=== PATIENT | female | born 1955 | race Caucasian/White ===

== ENCOUNTER → 2016-08-28 | Outpatient (CLI) | payer BC ==
[~2016-08-28] MED LIST: IOPAMIDOL (ISOVUE-300) 100 ML BTL IV ONE
--- NOTE | 2016-08-28 19:06 | CT ---
CT Abdomen (With Contrast) Indication: Z85.07 Personal history of malignant neoplasm of pancreas- HISTORY OF PANCREATIC CA-STATU S POST WHIPPLE AND STENT PLACEMENT. Follow up. Technique: 2.5 mm thick collimated slices were obtained through the abdomen following uneventful intr avenous administration of 90 mL Isovue 300. The abdomen was scanned during arterial and portal venous phase. No oral contrast was administered. Dose reduction techniques were utilized. Comparison: CT of the abdomen dated October 05, 2015, July 22, 2015, and February 24, 2012. Findings: The gastropancreatic duct stent remains well seated. Peripancreatic edema and stranding has completely resolved from the prior studies. The duct in the pancreatic remnant remains mildly dilate d measuring 5 to 6 mm in diameter. Several coarse calcifications along the inferior aspect of the garcia creatic tail are new. No peripancreatic fluid collection has developed. The biliary jejunostomy remains widely patent. Pneumobilia in the left lobe of the liver is unchanged . No intrapelvic biliary dilation has developed. The liver, spleen, adrenal glands, and kidneys remain normal. The portal and hepatic veins are patent . No enlarged lymph node, mass, ascites or peritoneal implant have developed. Bowel pattern is within normal limit. Mild right-sided constipation is similar to September 2015. The lung bases are clear. The abdominal aorta has normal caliber with trace calcified plaque. No bone lesions. Impression: 1. The gastric pancreatic duct stent remains well positioned. No residual peripancreatic inflammation or fluid collection. 2. Mild residual dilatation of the pancreatic duct and new dystrophic calcifications along the inferi or aspect of the pancreatic remnant. 3. Stigmata of Whipple procedure unchanged. No evidence of biliary obstruction. 4. No evidence of local regional recurrence or metastatic disease to the abdomen.
== END ==
LOC: FIMAGING 15:47
PROVIDERS: ATTEND Internal Medicine Gastroenterology
DX: Z08 Encounter for follow-up examination after completed treatment for malignant neoplasm (principal); Z85.07 Personal history of malignant neoplasm of pancreas; Z96.89 Presence of other specified functional implants
CPT/HCPCS: Q9967

== ENCOUNTER → 2017-04-02 | Outpatient (CLI) | payer BC | LOC: FIMAGING 08:42 | PROVIDERS: ATTEND Internal Medicine Hematology & Oncology | DX: Z12.31 Encounter for screening mammogram for malignant neoplasm of breast (principal); Z85.3 Personal history of malignant neoplasm of breast | CPT/HCPCS: G0202-52 ==

== ENCOUNTER → 2018-05-24 | Outpatient (CLI) | payer OTHER | LOC: BMCIMAGING 08:49 | PROVIDERS: ATTEND Family Medicine | DX: M25.531 Pain in right wrist (principal); M79.641 Pain in right hand; W19.XXXA Unspecified fall, initial encounter; M11.9 Crystal arthropathy, unspecified; R93.6 Abnormal findings on diagnostic imaging of limbs ==

== ENCOUNTER → 2018-06-02 | Outpatient (CLI) | payer OTHER | LOC: FIMAGING 08:23 | PROVIDERS: ATTEND Internal Medicine Hematology & Oncology | DX: Z12.31 Encounter for screening mammogram for malignant neoplasm of breast (principal); Z85.3 Personal history of malignant neoplasm of breast ==

== ENCOUNTER → 2018-06-16 | Outpatient (CLI) | payer OTHER | LOC: BMCIMAGING 16:10 | PROVIDERS: ATTEND Orthopaedic Surgery Hand Surgery | DX: S62.101A Fracture of unspecified carpal bone, right wrist, initial encounter for closed fracture (principal) ==

== ENCOUNTER → 2018-11-11 | Outpatient (CLI) | payer OTHER | LOC: FIMAGING 08:52 | PROVIDERS: ATTEND Internal Medicine Hematology & Oncology | DX: Z13.820 Encounter for screening for osteoporosis (principal); M81.0 Age-related osteoporosis without current pathological fracture; Z78.0 Asymptomatic menopausal state; Z85.3 Personal history of malignant neoplasm of breast; Z85.07 Personal history of malignant neoplasm of pancreas ==